=== PATIENT | female | born 1990 | race Caucasian/White ===

== ENCOUNTER 2024-07-01 20:23 | Outpatient (REF) | payer OTHER, SELFPAY ==
[2024-07-06 16:08] LABS: Age Gdln ACOG Testing Note (.); HPV Aptima Negative (Negative); IGP, Aptima HPV, rfx 16/18,45 Note (.)
== END 2024-07-01 20:24 | disposition home or self-care (01) ==
LOC: LAB 20:23
PROVIDERS: Visit Provider Nurse Practitioner Family
DX: Z01.419 Encounter for gynecological examination (general) (routine) without abnormal findings (principal)
CPT/HCPCS: 87624; 88175